=== PATIENT | male | born 1965 | race Hispanic/Latino ===

== ENCOUNTER 2024-05-13 00:01 | Emergency (ER) | payer SELFPAY ==
[2024-05-13 00:09] VITALS: BP 127/65; PULSE 81; RESP 18; TEMP 36.4; O2SAT 94
--- NOTE | 2024-05-13 00:20 | ECG_ITS ---
Test Date: 2024-05-13 00:22:50 Measurements Intervals [place] Rate: 87 P: 59 [place]: 157 QRS: 8 QRSD: 93 T: 6 QT: 344 QTc: 415 Interpretive Statements SINUS RHYTHM VOLTAGE CRITERIA FOR LVH NONSPECIFIC ST & T-WAVE ABNORMALITY- INF/LAT LEADS BASELINE ARTIFACT- I, II, III, AVR, AVL, AVF, V2, V5-V6 BORDERLINE ECG No previous ECG available for comparison Electronically Signed On 05-13-2024 07:12:49 CDT by Sebastian Shearer D.O.
[2024-05-13 00:31] VITALS: O2SAT 97
[2024-05-13 00:33] VITALS: BP 153/91; PULSE 78; RESP 14; O2SAT 98
--- NOTE | 2024-05-13 00:33 | ED.ALLEREA ---
HPI - Allergic Reaction General Chief complaint: Allergic Reaction Stated complaint: allergic reaction Time Seen by Provider: 05/13/24 00:24 Source: patient and family Mode of arrival: ambulatory Limitations: language barrier (Using stratus weight tester) History of Present Illness HPI narrative: This is a 58-year-old male that presents to the emergency department after allergic reaction. Reports he took a dose of diclofenac for back pain. Shortly after he started developed diffuse itching, rash. Reports he feels tingling around his mouth and in his throat. He took 2 Cloropiramina prior to arrival. Denies current swelling in his mouth or difficulty breathing. Related Data Allergies Allergy/AdvReac Type Severity Reaction Status Date / Time diclofenac Allergy Hives Verified 05/13/24 01:55 Review of Systems Review of Systems: CONSTITUTIONAL: Denies fever GASTROINTESTINAL: Denies vomiting SKIN: Reports rash and itching. All systems reviewed & are unremarkable except as noted in HPI and below PMFSH Past Medical History Medical History (Updated 05/14/24 @ 09:08 by Rebekah Arana PA-C) No active medical problems Social History Social History (Updated 05/13/24 @ 00:37 by Rebekah Arana PA-C) Substance use: never Exam Narrative: GENERAL: Well-appearing, well-nourished, and in no acute distress. HEAD: Normocephalic, atraumatic. EYES: EOMI. ENT: Nares clear, no rhinorrhea or epistaxis. Mucous membranes moist. No swelling of the mouth or oropharynx NECK: Supple. No adenopathy or masses. CHEST: Clear to auscultation. No respiratory distress. No wheezes rales or rhonchi HEART: Regular rate and rhythm. No murmur heard. Normal peripheral pulses. EXTREMITIES: Normal range of motion. No edema. SKIN: Warm, dry. Diffuse hives NEURO: No focal deficits. Alert and oriented x3. PSYCH: Normal mood and affect Course Course Emergency Course: Patient with improvement. Hives are gone Vital Signs Vital signs: Vital Signs Temperature 97.6 F 05/13/24 00:09 Pulse Rate 81 05/13/24 00:09 Respiratory Rate 18 05/13/24 00:09 Blood Pressure 127/65 05/13/24 00:09 Pulse Oximetry 94 05/13/24 00:09 Temperature 97.6 F 05/13/24 00:09 Pulse Rate 74 05/13/24 04:12 Respiratory Rate 16 05/13/24 04:12 Blood Pressure 129/75 05/13/24 04:12 Pulse Oximetry 100 05/13/24 04:12 Oxygen Delivery Room Air 05/13/24 00:31 MDM - Allergic Reaction MDM Narrative Medical decision making narrative: Presents to the emergency department after taking a dose of diclofenac for back pain for possible allergic reaction. Shortly after he started to developed diffuse hives. Also endorsing some tingling around his mouth and in his throat. I did not appreciate any overt swelling. He never had difficulty swallowing or trouble breathing. Vitals are stable. He had taken a product from [place] that is similar to Benadryl prior to arrival. He was given IV Solu-Medrol, Pepcid, IM epi in the ED. patient had relief of his symptoms. Was observed for 4 hours without any return of symptoms. Will be discharged and instructed to have close follow-up with his primary provider. Given a prescription for an EpiPen Differential Diagnosis Differential diagnosis: Likely anaphylaxis, allergic reaction, angioedema, adverse reaction to drug and urticaria ECG Data EKG #1: ECG completion date: 05/13/24 normal rate, sinus rhythm, no ST changes and normal QT Critical Care Time Critical Care Time Critical Care Time: No Discharge Plan Discharge Clinical Impression: Allergic reaction Qualifiers: Encounter type: initial encounter Qualified Code(s): T78.40XA - Allergy, unspecified, initial encounter Patient Disposition: Home, Self-Care Condition: Improved Instructions: General Allergic Reaction (ED) Additional Instructions: Return to the emergency department if you experience difficulty swallowing, trouble
[2024-05-13] MEDS: EPINEPHrine HCL INJ 1 MG/ML AMPUL 0.3 MG IM (00:42)
[2024-05-13] MEDS: FAMOTIDINE 20 MG/2 ML VIAL IV PUSH (00:42)
[2024-05-13] MEDS: methylPREDNISolone SOD SUCC 125 MG VIAL IV PUSH (00:43)
[2024-05-13 01:39] VITALS: BP 116/73; PULSE 84; RESP 15; O2SAT 100
[2024-05-13 04:12] VITALS: BP 129/75; PULSE 74; RESP 16; O2SAT 100
== END 2024-05-13 04:26 | disposition home or self-care (01) ==
PROVIDERS: Emergency Provider Physician Assistant
DX: T78.40XA Allergy, unspecified, initial encounter (principal)
CPT/HCPCS: 93005; 96372; 96374; 96375; 99284; J0171; J2919